=== PATIENT | male | born 1950 | race Caucasian/White ===

== ENCOUNTER 2017-06-03 05:09 | Outpatient (CLI) | payer MEDICARE, MEDICAID | END 2017-06-03 23:59 | disposition home or self-care (01) | LOC: DIABETIC 05:09 | PROVIDERS: ATTEND Specialist | DX: E11.65 Type 2 diabetes mellitus with hyperglycemia (principal) | CPT/HCPCS: G0108 ==

== ENCOUNTER 2017-08-30 04:55 | Outpatient (CLI) | payer MEDICARE, BC, MEDICAID | END 2017-08-30 23:59 | disposition home or self-care (01) | LOC: DIABETIC 04:55 | PROVIDERS: ATTEND Specialist | DX: E11.65 Type 2 diabetes mellitus with hyperglycemia (principal) | CPT/HCPCS: G0108 ==